=== PATIENT | female | born 1980 | race Caucasian/White ===

== ENCOUNTER 2025-03-06 09:16 | Inpatient (IN) | payer MEDICAID ==
[~2025-03-06] VITALS: Ht 152.4 cm; Wt 63.5 kg
[2025-03-06 08:45] VITALS: BP 147/87; TEMP 98.2; O2SAT 98
== END 2025-03-06 09:42 | disposition left against medical advice (07) | DRG 463 ==
LOC: MEDSURG3 09:16 → TELE3 09:28
PROVIDERS: ADMIT Internal Medicine; ATTEND Internal Medicine
DX: N39.0 Urinary tract infection, site not specified (principal); F10.10 Alcohol abuse, uncomplicated; Z53.29 Procedure and treatment not carried out because of patient's decision for other reasons
CPT/HCPCS: G0378